=== PATIENT | male | born 1990 | race Two or more races ===

== ENCOUNTER 2025-04-08 10:43 | Inpatient (IN) | payer OTHER ==
[~2025-04-08] VITALS: Ht 170.2 cm; Wt 84.1 kg
--- NOTE | 2025-04-08 11:11 | ED.PDOC ---
GI ASSESSMENT HPI Comments 35 y.o male presents to the ED for a chief complaint of right sided abdominal pain that started last night. Patient describes pain as sharp, constant, and worsens on movement. Patient states waking up around 0100 today with the pain that has progressively worsened. He denies any nausea, vomiting, fever, chills, dysuria. He denies any medical history or allergies. Denies alcohol, tobacco or substance use. Chief Complaint: Abdominal Pain Time Seen by MD: 11:06 Reviewed Notes: Nurses Notes, Medications, Allergies Allergies: Coded Allergies: NO KNOWN ALLERGIES (Unverified , 04/08/25) Information Source: Patient Mode of Arrival: Ambulatory Timing: Hours Duration: Since onset Quality: Sharp Vomitus: None Stool: Normal Severity: Moderate Recent: None Recent Hx of: None Pain Location: RUQ, RLQ Modifying Factors: Nothing Associated sign and symptoms: Abdominal Pain Past Medical History PAST MEDICAL HISTORY: Denies Surgical History: Denies all surgeries Family History Family History: Reviewed,noncontributory to illness Social History Smoker: Non-Smoker Alcohol: Denies ETOH Use Drugs: Denies Drug Use Lives In: Home Constitutional: denies: chills, diaphoresis, fatigue, fever, malaise, sweats, weakness, others EENTM: denies: blurred vision, double vision, ear bleeding, ear discharge, ear drainage, ear pain, ear ringing, eye pain, eye redness, hearing loss, mouth pain, mouth swelling, nasal discharge, nose bleeding, nose congestion, nose pain, photophobia, tearing, throat pain, throat swelling, voice changes, others Cardiovascular: denies: chest pain, dizzy spells, diaphoresis, Dyspnea on exertion, edema, irregular heart beat, left arm pain, lightheadedness, palpitations, PND, syncope, others Gastrointestinal: reports: abdominal pain; denies: abdomen distended, blood streaked bowels, constipated, diarrhea, dysphagia, difficulty swallowing, hematemesis, melena, nausea, poor appetite, poor fluid intake, rectal bleeding, rectal pain, vomiting, others Genitourinary: denies: burning, dysuria, flank pain, frequency, hematuria, incontinence, penile discharge, penile sore, pain, testicle pain, testicle swelling, urgency, others Neurological: reports: headache; denies: dizziness, fainting, left sided numbness, left sided weakness, numbness, paresthesia, pre-existing deficit, right sided numbness, right sided weakness, seizure, speech problems, tingling, tremors, weakness, others Musculoskeletal: denies: back pain, gout, joint pain, joint swelling, muscle pain, muscle stiffness, neck pain, others Integumetry: denies: bruises, change in color, change in hair/nails, dryness, laceration, lesions, lumps, rash, wounds, others Allergic/Immunocompromised: denies: Difficulty Healing, Frequent Infections, Hives, Itching, others Hematologic/Lymphatic: denies: anemia, blood clots, easy bleeding, easy bruising, swollen glands, others Endocrine: denies: excessive hunger, excessive sweating, excessive thirst, excessive urination, flushing, intolerance to cold, intolerance to heat, unexplained weight gain, unexplained weight loss, others Psychiatric: denies: anxiety, bipolar disorder, depression, hopeless, panic disorder, schizophrenia, sleepless, suicidal, others All Other Systems: Reviewed and Negative Physical Exam General Appearance: Moderate Distress HEENT: Normal ENT Inspection, Pharynx Normal, TMs Normal Neck: Full Range of Motion, Non-Tender, Normal, Normal Inspection Respiratory: Chest Non-Tender, Lungs Clear, No Accessory Muscle Use, No Respiratory Distress, Normal Breath Sounds Cardiovascular: No Edema, No JVD, No Murmur, No Gallop, Normal Peripheral Pulses, Regular Rate/Rhythm Breast Exam: Deferred Gastrointestinal: No Organomegaly, No Pulsatile Mass, Normal Bowel Sounds, RLQ, Soft, Tenderness Genitalia: Deferred Pelvic: Deferred Rectal: Deferred Extremities: No calf tenderness, Normal capillary refill, Normal inspection, Normal range of motion, Non-tender, No pedal edema Musculoskeletal : Apperance: Normal Neurologic: Alert, pony worker II-XII nml as Tested, No Motor Deficits, Normal Affect, Normal Mood, No Sensory Deficits Cerebellar Function: Normal Reflexes: Normal Skin: Dry, Normal Color, Warm Lymphatic: No Adenopathy Was a procedure done? Was a procedure done?: No GI differential Dx Differential Diagnosis: Appendicitis, Cholecystitis, Esophagitis, Gastroenteritis, Dehydration X-Ray, Labs, Meds, VS Vital Signs Date Time Temp Pulse Resp B/P (MAP) Pulse Ox O2 Delivery O2 Flow Rate FiO2 04/08/25 12:19 98.9 90 17 177/97 (123) 98 98.9 04/08/25 12:19 Room Air* 0 21 04/08/25 10:46 98.3 89 18 133/94 97 98.3 Lab Test 04/08/25 13:04 04/08/25 12:05 04/08/25 11:33 Range/Units Urine Color Yellow Yellow Urine Clarity Clear Clear Urine pH 6.0 5.0-9.0 Urine Specific [place] 1.021 1.001-1.035 Urine Protein Negative Negative Urine Ketones Negative Negative Urine Blood Trace H Negative /uL Urine Nitrite Negative Negative Urine Bilirubin Negative Negative Urine Urobilinogen Normal Negative mg/dL Urine Leukocyte Esterase Negative Negative /uL Urine RBC 8 0 - 3 /hpf Urine Microscopic WBC 3 0-3 /HPF Urine Squamous Epithelial Cells None seen <5 /hpf Urine Bacteria None seen None Seen /hpf Urine Hyaline Casts Few 0 - 2 /lpf Urine Mucus Few None Seen Urine Glucose Normal Normal mg/dL Prothrombin Time 10.4 9.3-11.8 sec Prothrombin Time INR 0.98 0.9-1.15 Activated Partial Thromboplast Time 35.0 H 24.5-34.5 SEC White Blood Count 11.0 H 4.4-10.8 10^3/uL Red Blood Count 5.58 4.5-5.90 10^6/uL Hemoglobin 16.9 13.5-17.5 g/dL Hematocrit 48.2 41.0-53.0 % Mean Corpuscular Volume 86.4 80.0-100.0 fL Mean Corpuscular Hemoglobin 30.3 28.0-32.0 pg Mean Corpuscular Hemoglobin Concent 35.1 32.0-36.0 g/dL Red Cell Distribution Width 13.2 11.8-14.3 % Platelet Count 275 140-450 10^3/uL Mean Platelet Volume 7.8 6.9-10.8 fL Neutrophils (%) (Auto) 69.8 37.0-80.0 % Lymphocytes (%) (Auto) 21.1 10.0-50.0 % Monocytes (%) (Auto) 7.8 0.0-12.0 % Eosinophils (%) (Auto) 1.0 0.0-7.0 % Basophils (%) (Auto) 0.3 0.0-2.0 % Neutrophils # (Auto) 7.7 1.6-8.6 10 ^3/uL Lymphocytes # (Auto) 2.3 0.4-5.4 10 ^3/uL Monocytes # (Auto) 0.9 0-1.3 10 ^3/uL Eosinophils # (Auto) 0.1 0-0.8 10 ^3/uL Basophils # (Auto) 0 0-0.2 10 ^3/uL Nucleated Red Blood Cells 0.0 % Sodium Level 139 136-145 mmol/L Potassium Level 3.8 3.5-5.1 mmol/L Chloride Level 101 98-107 mmol/L Carbon Dioxide Level 29 20-31 mmol/L Anion Gap 9 5-15 Blood Urea Nitrogen 6 L 9-23 mg/dL Creatinine 0.87 0.700-1.30 mg/dL Glomerular Filtration Rate Calc 114 >90 mL/min BUN/Creatinine Ratio 6.9 L 10.0-20.0 Serum Glucose 97 74-106 mg/dL Calcium Level 10.1 8.7-10.4 mg/dL Current Medications Medications (Trade) Dose Ordered Sig/Brandon Route Start Time Stop Time Status Last Admin Sodium Chloride 1,000 ml @ 1,000 mls/hr Q1H ONCE IV 04/08/25 12:15 04/08/25 13:14 DC 04/08/25 12:32 Piperacillin Sod/ Tazobactam Sod 100 ml @ 100 mls/hr ONCE ONCE IV 04/08/25 12:15 04/08/25 13:14 DC 04/08/25 12:51 CLINICAL HISTORY: rlq pain TECHNIQUE: CT of the abdomen and pelvis was performed without IV contrast. This exam was performed according to our departmental dose optimization program. Up-to-date CT equipment and radiation dose reduction techniques are utilized as appropriate. IMPRESSION: Acute appendicitis. Diffuse hepatic steatosis. IV Hep-Lock was established. The patient was started on Zosyn The patient was given a 1 L bolus of normal saline The CAT scan was reviewed and does reveal appendicitis The patient's CBC shows an elevated white blood cell count of 11.3 The chemistry panel is within normal limits We do have a urine test that was negative The patient is being admitted We spoke with the surgeon and he is aware of the patient and will be evaluating and possibly intervening on this patient Images Reviewed?: Images reviewed and evaluated by me Time of 1ST Reevaluation: 11:08 Reevaluation 1ST: Unchanged Patient Education/Counseling: Diagnosis, Treatment, Prognosis Family Education/Counseling: No Family Present SEPSIS Sepsis Screen Date sepsis recognized/suspect: Apr 08, 2025 Time Sepsis recognized/suspect: 104 Recent Procedure: No On Antibiotic Therapy: No Respiratory Rate >20: No Heart Rate >90: No Temp<36 C (96.8 F) or >38.3 C: No SBP <90 or MAP <65 mmHG: No New Acute Mental Status Change: No Is the patient on CPAP, BIPAP,: No Physician Orders Ct Ab Pel Wo Con-No Oral Or Iv (04/08/25 11:08) Heplock Iv (04/08/25 12:05) [employer] (04/08/25 12:05) Blood Pressure (04/08/25 12:05) Pulse Oximetry (04/08/25 12:05) Vital Signs Date Time Temp Pulse Resp B/P (MAP) Pulse Ox O2 Delivery O2 Flow Rate FiO2 04/08/25 12:19 98.9 90 17 177/97 (123) 98 98.9 04/08/25 12:19 Room Air* 0 21 04/08/25 10:46 98.3 89 18 133/94 97 98.3 Laboratory Tests Test 04/08/25 11:33 White Blood Count 11.0 10^3/uL (4.4-10.8) H Medications Medications Dose Ordered Sig/Brandon Route Start Time Stop Time Status Last Admin Dose Admin Piperacillin Sod/ Tazobactam Sod 100 ml @ 100 mls/hr ONCE ONCE IV 04/08/25 12:15 04/08/25 13:14 DC 04/08/25 12:51 Sodium Chloride 1,000 ml @ 1,000 mls/hr Q1H ONCE IV 04/08/25 12:15 04/08/25 13:14 DC 04/08/25 12:32 Departure 1 Departure Time of Disposition: 13:36 Impression: Primary Impression: Intractable abdominal pain Additional Impression: Acute appendicitis Qualified Codes: K35.30 - Acute appendicitis with localized peritonitis, without perforation or gangrene Disposition: ADMITTED INPATIENT Admit to: Med Surg Condition: Fair Critical Care Note Critical Care Time?: No Stability Stability form required: No I personally scribed for MICHEL MILLER MD ([email or web address]) on 04/08/25 at 11:11. Electronically submitted by Adrianne Millan ([facility]). I personally scribed for MICHEL MILLER MD ([email or web address]) on 04/08/25 at 12:03. Electronically submitted by Adrianne Millan ([facility]). MICHEL MILLER MD Apr 08, 2025 11:11
[2025-04-08 11:50] LABS: Hematocrit 48.2 % (41.0-53.0); Hemoglobin 16.9 g/dL (13.5-17.5); Mean Corpuscular Hemoglobin 30.3 pg (28.0-32.0); Mean Corpuscular Volume 86.4 fL (80.0-100.0); Nucleated Red Blood Cells % 0.0 %
--- NOTE | 2025-04-08 11:51 | DVH ---
CLINICAL HISTORY: rlq pain TECHNIQUE: CT of the abdomen and pelvis was performed without IV contrast. This exam was performed according to our departmental dose optimization program. Up-to-date CT equipment and radiation dose reduction techniques are utilized as appropriate. CTDI 10 DLP 560 COMPARISON: None FINDINGS: Abdomen/Pelvis: The spleen, pancreas, adrenal glands, kidneys, gallbladder, bladder, and prostate gland are grossly unremarkable. There is diffuse hepatic steatosis. The abdominal aorta is normal in course and caliber. There are no significant atherosclerotic calcifications. There is no free intraperitoneal air or fluid. There is no enlarged abdominal pelvic lymph node. The appendix is thick-walled and moderately inflamed with luminal caliber approaching 14 mm. There is Moderate periappendiceal inflammatory change. No discrete fluid collection is seen. There is no evidence for abscess. Other: The imaged lower thorax demonstrate minimal right medial lower lobe atelectasis. No acute osseous abnormality is evident. IMPRESSION: Acute appendicitis. Diffuse hepatic steatosis.
[2025-04-08 12:06] LABS: Chloride 101 mmol/L (98-107); Potassium 3.8 mmol/L (3.5-5.1); Sodium 139 mmol/L (136-145)
[2025-04-08 12:07] LABS: Anion Gap 9 (5-15); Calcium 10.1 mg/dL (8.7-10.4); Carbon Dioxide 29 mmol/L (20-31)
[2025-04-08 12:12] LABS: BUN/Creatinine Ratio 6.9 (10.0-20.0); Blood Urea Nitrogen 6 mg/dL (9-23); Glucose 97 mg/dL (74-106)
[2025-04-08 12:27] LABS: INR 0.98 (0.9-1.15); Partial Thromboplastin Time 35.0 SEC (24.5-34.5); Prothrombin Time 10.4 sec (9.3-11.8)
[2025-04-08] MEDS: SODIUM CHLORIDE 0.9% 1,000 ML IV ONE (12:32)
[2025-04-08] MEDS: PIPERACILLIN-TAZOB 3.375GM 100 ML IV ONE (12:51)
[2025-04-08 13:15] LABS: Urine Protein, UAD Negative (Negative)
--- NOTE | 2025-04-08 13:38 | DVHINCON2 ---
Date of service: Apr 08, 2025 History of Present Illness 45-year-old otherwise healthy male complaining of two day history of right lower quadrant abdominal pain associated with fever. Past Medical History None Past Surgical History None Family History Noncontributory Social History Denies alcohol, tobacco, IV drug use Allergies: Coded Allergies: NO KNOWN ALLERGIES (Unverified , 04/08/25) Vital Signs Vital Signs Date Time Temp Pulse Resp B/P (MAP) Pulse Ox O2 Delivery O2 Flow Rate FiO2 04/08/25 12:19 98.9 90 17 177/97 (123) 98 98.9 04/08/25 12:19 Room Air* 0 21 Physical Exam GEN: Age-appropriate male in no acute distress. Alert. HEENT: Normocephalic atraumatic. Moist mucous membranes. Anicteric sclerae. CV: RRR Respiratory: CTAB ABD: Localized right lower quadrant tenderness to palpation with localized guarding. CT of the abdomen and pelvis: Appendix is thick walled and moderately inflamed with luminal caliber measuring 14 mm with periappendiceal inflammatory changes consistent with the acute appendicitis Labs/Diagnostic Data Labs Test 04/08/25 13:04 04/08/25 12:05 04/08/25 11:33 Range/Units Urine Color Yellow Yellow Urine Clarity Clear Clear Urine pH 6.0 5.0-9.0 Urine Specific [place] 1.021 1.001-1.035 Urine Protein Negative Negative Urine Ketones Negative Negative Urine Blood Trace H Negative /uL Urine Nitrite Negative Negative Urine Bilirubin Negative Negative Urine Urobilinogen Normal Negative mg/dL Urine Leukocyte Esterase Negative Negative /uL Urine RBC 8 0 - 3 /hpf Urine Microscopic WBC 3 0-3 /HPF Urine Squamous Epithelial Cells None seen <5 /hpf Urine Bacteria None seen None Seen /hpf Urine Hyaline Casts Few 0 - 2 /lpf Urine Mucus Few None Seen Urine Glucose Normal Normal mg/dL Prothrombin Time 10.4 9.3-11.8 sec Prothrombin Time INR 0.98 0.9-1.15 Activated Partial Thromboplast Time 35.0 H 24.5-34.5 SEC White Blood Count 11.0 H 4.4-10.8 10^3/uL Red Blood Count 5.58 4.5-5.90 10^6/uL Hemoglobin 16.9 13.5-17.5 g/dL Hematocrit 48.2 41.0-53.0 % Mean Corpuscular Volume 86.4 80.0-100.0 fL Mean Corpuscular Hemoglobin 30.3 28.0-32.0 pg Mean Corpuscular Hemoglobin Concent 35.1 32.0-36.0 g/dL Red Cell Distribution Width 13.2 11.8-14.3 % Platelet Count 275 140-450 10^3/uL Mean Platelet Volume 7.8 6.9-10.8 fL Neutrophils (%) (Auto) 69.8 37.0-80.0 % Lymphocytes (%) (Auto) 21.1 10.0-50.0 % Monocytes (%) (Auto) 7.8 0.0-12.0 % Eosinophils (%) (Auto) 1.0 0.0-7.0 % Basophils (%) (Auto) 0.3 0.0-2.0 % Neutrophils # (Auto) 7.7 1.6-8.6 10 ^3/uL Lymphocytes # (Auto) 2.3 0.4-5.4 10 ^3/uL Monocytes # (Auto) 0.9 0-1.3 10 ^3/uL Eosinophils # (Auto) 0.1 0-0.8 10 ^3/uL Basophils # (Auto) 0 0-0.2 10 ^3/uL Nucleated Red Blood Cells 0.0 % Sodium Level 139 136-145 mmol/L Potassium Level 3.8 3.5-5.1 mmol/L Chloride Level 101 98-107 mmol/L Carbon Dioxide Level 29 20-31 mmol/L Anion Gap 9 5-15 Blood Urea Nitrogen 6 L 9-23 mg/dL Creatinine 0.87 0.700-1.30 mg/dL Glomerular Filtration Rate Calc 114 >90 mL/min BUN/Creatinine Ratio 6.9 L 10.0-20.0 Serum Glucose 97 74-106 mg/dL Calcium Level 10.1 8.7-10.4 mg/dL Assessment 1. Acute appendicitis Plan/Recommendation 1. Laparoscopic appendectomy possible open surgery Informed consent: The surgery and its risks including but not limited to infection, bleeding requiring possible blood transfusion with the risk of hepatitis or HIV infection, possible open surgery, possibility that the abdominal pain is caused by different intra-abdominal pathology other than acute appendicitis in which case we will proceed with the appendectomy if it is safe to do so and then treat the problem according to intraoperative findings were explained to the patient. All questions were answered to his satisfaction. He expressed verbal understanding and wished to proceed with the surgery Plan discussed with: Patient LUIS MTZ MD Apr 08, 2025 13:38
[2025-04-08] MEDS ORDERED: fentaNYL CITRATE 100 MCG/2 ML VL ONE (13:40)
[2025-04-08] MEDS ORDERED: HYDROmorphone HCL 2 MG/ML VL/or syr ONE (13:40)
[2025-04-08] MEDS ORDERED: MIDAZOLAM HCL 2MG/2ML 2ml VIAL (1mg/ml) ONE (13:40)
[2025-04-08] MEDS ORDERED: GLYCOPYRROLATE 0.2 MG/ML 1ML VIAL ONE (13:41)
[2025-04-08] MEDS ORDERED: SUGAMMADEX 200mg/2ml Vial (100MG/ML) IV ONE (13:41)
[2025-04-08] MEDS ORDERED: PROPOFOL 10 MG/ML 20 ML IV ONE (13:41)
[2025-04-08] MEDS ORDERED: LIDOCAINE 2% (LOCAL ANESTH.) PF 5ml SDV ONE (13:41)
[2025-04-08] MEDS ORDERED: ONDANSETRON HCL 4 MG/2 ML VIAL ONE (13:41)
[2025-04-08] MEDS ORDERED: ROCURONIUM 10MG/ML 10ML VIAL IV ONE (13:41)
[2025-04-08] MEDS ORDERED: KETOROLAC TROMETH 30 MG/ML 1ML VIAL ONE (13:41)
[2025-04-08] MEDS: LIDOCAINE W/ EPINEPHRINE 1% 20ML VIAL ONE (14:12)
[2025-04-08] MEDS ORDERED: KETAMINE 50mg/ML 1ml syringe ONE (14:20)
[2025-04-08] MEDS ORDERED: SODIUM CHLORIDE 0.9% 1,000 ML IV SCH ×2 (15:00→15:30)
--- NOTE | 2025-04-08 15:00 | DVHOP2 ---
Operative Report - 2 Report Details Date: 04/08/25 Preop Diagnosis: Acute appendicitis Postop Diagnosis: Same Surgeon: Luis Bruce MD Manager Rn: None Anesthesiologist: Dr. Patiño Anesthesia: General, Local Consent: The surgery and its risks including but not limited to infection, bleeding requiring possible blood transfusion with the risk of hepatitis or HIV infection, possible open surgery, possibility that the abdominal pain is caused by different intra-abdominal pathology other than acute appendicitis in which case we will proceed with the appendectomy if it is safe to do so and then treat the problem according to intraoperative findings were explained to the patient. All questions were answered to his satisfaction. He expressed verbal understanding and wished to proceed with the surgery. Complications: None Estimated Blood Loss: 30 mL Fluids: 1800 mL Name of Procedure Performed Laparoscopic appendectomy Procedure Details Procedure Details: After induction of general anesthesia, a Bundy catheter was placed by the OR nursing staff. Patient's abdomen was then prepped and draped in standard surgical fashion. A small infraumbilical incision was made and this incision was taken through the abdominal wall down to the fascia which was opened sharply. Peritoneum was then bluntly divided gaining access to the intra-abdominal cavity. Interrupted 0 Vicryl sutures were placed through the fascial incision and using an open technique, Barbara trocar was introduced and secured using the Vicryl sutures. Abdomen was insufflated to 15 mmHg and camera was inserted. Visual examination of the intestine under the fascial incision appeared normal without injury. Under direct visualization, a 5 mm bladeless trocar was placed in the left lower quadrant and a 2nd 5 mm bladeless trocar was placed in the suprapubic region both under direct visualization. Examination of the right lower quadrant revealed an inflamed appendix without perforation. Minimal dissection was performed to free up the appendix and using an endovascular stapler the mesoappendix was stapled and divided up to the base of the appendix without complication. The base of the appendix was then stapled and divided using a regular endo stapler. The appendix was then removed from the abdominal cavity using an endo pouch bag and sent off the surgical field. Abdomen was then re-insufflated. The staple line appeared intact without bleeding or leaks. There was small amount of serosanguineous fluid collected in the pelvis which was aspirated away. Pelvic area was then well irrigated until fluid was clear. Trocars were then removed under direct visualization as the abdomen was deflated. Additional interrupted 0 Vicryl sutures were placed through the infraumbilical fascial incision and the sutures were tied down closing off the infraumbilical fascia. Surgical sites were irrigated injected with 20 mL of 1% lidocaine with epinephrine. Skin incisions were closed using 4-0 Monocryl sutures in subcuticular fashion. Surgical sites were cleaned and dried and dressings were applied. Sponge, needle, instrument count at the end of the case were reported to be correct by the nursing staff. The patient tolerated procedure well and at the time of dictation, he is being awakened from general anesthesia. Specimen: Appendix Condition Stable Disposition Still a Patient LUIS BRUCE MD Apr 08, 2025 15:00
[2025-04-08 15:09] VITALS: O2SAT 97
[2025-04-08] MEDS ORDERED: ACETAMINOPHEN IV 1000 MG/100ML (10MG/ML) IV ONE (15:15)
[2025-04-08] MEDS ORDERED: ONDANSETRON HCL 4 MG/2 ML VIAL IV PRN (15:15)
[2025-04-08] MEDS ORDERED: HYDROmorphone HCL 2 MG/ML VL/or syr IV PRN (15:15)
[2025-04-08] MEDS ORDERED: ACETAMINOPHEN 325 MG TAB PO PRN (15:30)
[2025-04-08] MEDS ORDERED: NITROGLYCERIN 0.4 MG SL TAB SL PRN ×2 (15:30)
[2025-04-08] MEDS ORDERED: MORPHINE SULFATE INJ 2 MG/ml SYRG IV PRN ×2 (15:30)
[2025-04-08] MEDS ORDERED: MORPHINE SULFATE 4 MG/ML SYR/VIAL IV PRN ×2 (15:30)
--- NOTE | 2025-04-08 15:30 | DVHHPRES ---
History of Present Illness Resident Creating Document: JOHANNE PADILLA RESIDENT History of Present Illness Erik Andino, A 35-year-old male with no significant past medical or surgical history presents ambulatory to the ED with moderate, sharp, constant right-sided abdominal pain (RUQ and RLQ) that began last night and worsens with movement, associated nausea, but denies vomiting, fever, chills, dysuria, and substance use. Presented with Acute appendicitis noted in CT abdomen pelvis, status post laparoscopic appendicectomy by doctors SMITH on p.m. of 04/08. PMHx: None PSHx: none Family history: noncontributory Social history: denies history of smoking, alcohol, recreational drugs, lives at home with family, accompanied to the hospital by . Review of Systems Constitutional: Yes: Chills, Malaise; No: Fever, Sweats, Weakness, Other Eyes: No: Pain, Vision change, Conjunctivae inflammation, Eyelid inflammation, Other, Redness ENT: No: Ear pain, Ear discharge, Nose pain, Nose discharge, Nose congestion, Mouth pain, Mouth swelling, Throat pain, Throat swelling, Other Respiratory: No: Cough, Dry, Shortness of breath, SOB with excertion, Wheezing, Hemoptysis, Pleuritic Pain, Sputum, Wheezing, Other Cardiovascular: No: Chest Pain, Palpitations, Orthopnea, Paroxysmal Noc. Dyspnea, Edema, Lt Headedness, Other Gastrointestinal: Nausea, Abdominal Pain; No: Vomiting, Diarrhea, Constipation, Melena, Hematochezia, Other Genitourinary: No Dysuria, No Frequency, No Incontinence, No Hematuria, No Retention, No Other Musculoskeletal: No: other, neck pain, shoulder pain, arm pain, back pain, hand pain, leg pain, foot pain Skin: No: Rash, Lesions, Jaundice, Bruising, Other Neurological: No: Weakness, Numbness, Incoordination, Change in speech, Confusion, Seizures, Other Allergies: Coded Allergies: NO KNOWN ALLERGIES (Unverified , 04/08/25) Medications Current Medications Medications Dose Ordered Sig/Brandon Route Start Time Stop Time Status Last Admin Dose Admin Piperacillin Sod/ Tazobactam Sod 100 ml @ 25 mls/hr Q6HR IV 04/08/25 18:00 Morphine Sulfate 2 mg Q4HPRN IV 04/08/25 18:00 Ondansetron HCl 4 mg Q6HPRN IV 04/08/25 18:00 Ondansetron HCl 4 mg ONCE PRN IV 04/08/25 15:15 04/08/25 15:16 UNV Hydromorphone HCl 0.5 mg Q10M PRN IV 04/08/25 15:15 04/08/25 15:56 UNV Nitroglycerin 0.4 mg Q5MINP PRN SL 04/08/25 15:30 UNV Morphine Sulfate 2 mg Q30M PRN IV 04/08/25 15:30 UNV Sodium Chloride 1,000 ml @ 120 mls/hr Q8H20M IV 04/08/25 15:30 Acetaminophen/ Hydrocodone Bitart 1 tab Q4HP PRN PO 04/08/25 15:30 UNV Ondansetron HCl 4 mg Q4HP PRN IV 04/08/25 15:30 UNV Acetaminophen 650 mg Q6HP PRN PO 04/08/25 15:30 UNV Morphine Sulfate 2 mg Q4HPRN PRN IV 04/08/25 15:30 UNV Enoxaparin Sodium 40 mg DAILY SC 04/09/25 10:00 UNV Nitroglycerin 0.4 mg Q5MINP PRN SL 04/08/25 15:30 UNV Morphine Sulfate 2 mg Q30M PRN IV 04/08/25 15:30 UNV Exam Vital Signs Vital Signs Date Time Temp Pulse Resp B/P (MAP) Pulse Ox O2 Delivery O2 Flow Rate FiO2 04/08/25 12:19 98.9 90 17 177/97 (123) 98 98.9 04/08/25 12:19 Room Air* 0 21 General Appearance: Alert, Oriented X3, Cooperative HEENT: Atraumatic, PERRLA, EOMI, Other (dry mucosa) Respiratory: Clear to auscultation, Normal air movement Cardiovascular: Regular rate, Normal S1, Normal S2, No murmurs Abdominal: Soft, Other (on abdominal binder. healthy surgical wounds. slow GI transit. ) Extremities: No clubbing, No cyanosis, No edema, Normal pulses Skin: No rashes, No breakdown, No significant lesion Neuro: Normal speech, Strength at 5/5 X4 ext, Normal tone, Sensation intact Psych/Mental Status: Mental status NL, Mood NL Labs/Xrays Labs Test 04/08/25 13:04 04/08/25 12:05 04/08/25 11:33 Range/Units Urine Color Yellow Yellow Urine Clarity Clear Clear Urine pH 6.0 5.0-9.0 Urine Specific [place] 1.021 1.001-1.035 Urine Protein Negative Negative Urine Ketones Negative Negative Urine Blood Trace H Negative /uL Urine Nitrite Negative Negative Urine Bilirubin Negative Negative Urine Urobilinogen Normal Negative mg/dL Urine Leukocyte Esterase Negative Negative /uL Urine RBC 8 0 - 3 /hpf Urine Microscopic WBC 3 0-3 /HPF Urine Squamous Epithelial Cells None seen <5 /hpf Urine Bacteria None seen None Seen /hpf Urine Hyaline Casts Few 0 - 2 /lpf Urine Mucus Few None Seen Urine Glucose Normal Normal mg/dL Prothrombin Time 10.4 9.3-11.8 sec Prothrombin Time INR 0.98 0.9-1.15 Activated Partial Thromboplast Time 35.0 H 24.5-34.5 SEC White Blood Count 11.0 H 4.4-10.8 10^3/uL Red Blood Count 5.58 4.5-5.90 10^6/uL Hemoglobin 16.9 13.5-17.5 g/dL Hematocrit 48.2 41.0-53.0 % Mean Corpuscular Volume 86.4 80.0-100.0 fL Mean Corpuscular Hemoglobin 30.3 28.0-32.0 pg Mean Corpuscular Hemoglobin Concent 35.1 32.0-36.0 g/dL Red Cell Distribution Width 13.2 11.8-14.3 % Platelet Count 275 140-450 10^3/uL Mean Platelet Volume 7.8 6.9-10.8 fL Neutrophils (%) (Auto) 69.8 37.0-80.0 % Lymphocytes (%) (Auto) 21.1 10.0-50.0 % Monocytes (%) (Auto) 7.8 0.0-12.0 % Eosinophils (%) (Auto) 1.0 0.0-7.0 % Basophils (%) (Auto) 0.3 0.0-2.0 % Neutrophils # (Auto) 7.7 1.6-8.6 10 ^3/uL Lymphocytes # (Auto) 2.3 0.4-5.4 10 ^3/uL Monocytes # (Auto) 0.9 0-1.3 10 ^3/uL Eosinophils # (Auto) 0.1 0-0.8 10 ^3/uL Basophils # (Auto) 0 0-0.2 10 ^3/uL Nucleated Red Blood Cells 0.0 % Sodium Level 139 136-145 mmol/L Potassium Level 3.8 3.5-5.1 mmol/L Chloride Level 101 98-107 mmol/L Carbon Dioxide Level 29 20-31 mmol/L Anion Gap 9 5-15 Blood Urea Nitrogen 6 L 9-23 mg/dL Creatinine 0.87 0.700-1.30 mg/dL Glomerular Filtration Rate Calc 114 >90 mL/min BUN/Creatinine Ratio 6.9 L 10.0-20.0 Serum Glucose 97 74-106 mg/dL Calcium Level 10.1 8.7-10.4 mg/dL SEPSIS Sepsis Screen Date sepsis recognized/suspect: Apr 08, 2025 Time Sepsis recognized/suspect: 8 Recent Procedure: No On Antibiotic Therapy: No Respiratory Rate >20: No Heart Rate >90: Yes Temp<36 C (96.8 F) or >38.3 C: No SBP <90 or MAP <65 mmHG: No New Acute Mental Status Change: No Is the patient on CPAP, BIPAP,: No Physician Orders Ct Ab Pel Wo Con-No Oral Or Iv (04/08/25 11:08) [place] Iv (04/08/25 12:05) Licensed Psychologist Manager (04/08/25 12:05) Blood Pressure (04/08/25 12:05) Pulse Oximetry (04/08/25 12:05) Piperacillin-Tazob 3.375gm (Zosyn 3.375g (04/08/25 18:00) Incentive Spirometry Q 1hr (04/08/25 14:52) Sequential Compression Device (04/08/25 14:52) Ondansetron Hcl (Zofran) (04/08/25 18:00) Complete Blood Count (04/09/25 04:00) Basic Metabolic Panel (04/09/25 04:00) Morphine Sulfate Injection (04/08/25 18:00) Oxygen By Face Mask (04/08/25 15:14) Licensed Psychologist Manager (04/08/25 15:14) Notify Anesth. For Changes: (04/08/25 15:14) Pulse Ox Assessment (04/08/25 15:14) May Have Head Of Bed Up (04/08/25 15:14) Continue Present Iv (04/08/25 15:14) Discharge To Room Per Criteria (04/08/25 15:14) Ondansetron Hcl (Zofran) (04/08/25 15:15) Hydromorphone Injection (Dilaudid Inject (04/08/25 15:15) Acetaminophen Iv (Ofirmev) (04/08/25 15:15) Bipap/Cpap For Sleep Apnea (04/08/25 15:14) Admit (04/08/25 15:17) Oxygen By Nasal Cannula (04/08/25 15:17) Nitroglycerin Sublingual (Ntrostat Subli (04/08/25 15:30) Morphine Sulfate Injection (04/08/25 15:30) Stat Ekg For Chest Pain (04/08/25 15:17) Notify Md Of Changes From Base (04/08/25 15:17) Motel Front Desk Attendant For 24 Hours (04/08/25 15:17) Emergency Dysrhythmia Protocol (04/08/25 15:17) Rhythm Strips Once Every Shift (04/08/25 15:17) Admit (04/08/25 15:17) Allergies (04/08/25 15:17) Code Status (04/08/25 15:17) Sodium Chloride 0.9% (04/08/25 15:30) Hydrocodone-Acet 5/325mg Tab ([place] 5/32 (04/08/25 15:30) Ondansetron Hcl (Zofran) (04/08/25 15:30) Complete Blood Count (04/09/25 04:00) Comprehensive Metabolic Panel (04/09/25 04:00) Npo (Nothing By Mouth) Diet (04/08/25 Dinner) Condition: Critical (04/08/25 15:17) Acetaminophen Tablet (Tylenol Tablet) (04/08/25 15:30) Bedrest With Bathroom Privileg (04/08/25 15:17) Bedside Commode (04/08/25 15:17) Morphine Sulfate Injection (04/08/25 15:30) Enoxaparin Sodium (Lovenox) (04/09/25 10:00) Nitroglycerin Sublingual (Ntrostat Subli (04/08/25 15:30) Morphine Sulfate Injection (04/08/25 15:30) Oxygen By Nasal Cannula (04/08/25 15:17) Stat Ekg For Chest Pain (04/08/25 15:17) Notify Of Changes From Base (04/08/25 15:17) Motel Front Desk Attendant For 24 Hours (04/08/25 15:17) Vital Signs Date Time Temp Pulse Resp B/P (MAP) Pulse Ox O2 Delivery O2 Flow Rate FiO2 04/08/25 12:19 98.9 90 17 177/97 (123) 98 98.9 04/08/25 12:19 Room Air* 0 21 04/08/25 10:46 98.3 89 18 133/94 97 98.3 Laboratory Tests Test 04/08/25 11:33 White Blood Count 11.0 10^3/uL (4.4-10.8) H Medications Medications Dose Ordered Sig/Brandon Route Start Time Stop Time Status Last Admin Dose Admin Lidocaine/ Epinephrine 20 ml STK-MED ONCE .ROUTE 04/08/25 13:39 04/08/25 13:39 DC 04/08/25 14:12 20 ML Piperacillin Sod/ Tazobactam Sod 100 ml @ 100 mls/hr ONCE ONCE IV 04/08/25 12:15 04/08/25 13:14 DC 04/08/25 12:51 100 MLS/HR Sodium Chloride 1,000 ml @ 1,000 mls/hr Q1H ONCE IV 04/08/25 12:15 04/08/25 13:14 DC 04/08/25 12:32 1,000 MLS/HR Assessment/Plan Assessment/Plan #Acute abdomen with nausea: UTI ruled out, likely appendicitis, other possible common causes of acute abdomen to rule out. Keep the patient NPO, IV hydration to continue #Acute appendicitis status post laparoscopic appendicectomy: NPO, follow up wi th the surgery, IV hydration to continue, pain control, abdominal binder, incentive spirometry. Blood culture to rule out bacteremia. CBC and CMP to follow up. #Post surgical bilateral atelectasis: Q 1 incentive spirometry continue, multimodal pain control. PUD prophylaxis: protonix 40mg/IV daily DVT prophylaxis: Levonox 40mg/brisk movement. Barriers to discharge: Medical diagnosis and management in progress. Patient l jonn with family. Independent for ADL. PCP: not established PCP. compliance coordinator consultation done. Patient needs to follow up with discharge Clinic in the meantime. Specialist Relevant To Admission: General surgery, Dr. Bruce consulted. Case discussed with Dr. Dunn. Code Status: Full Code. Discussion for goals of care and care plan needed total 29 minutes bedside Plan discussed with: Patient My Orders Orders - JOHANNE PADILLA RESIDENT Procedure Category Date Status Time Admit ADMIT 04/08/25 Transmitted 15:17 Oxygen By Nasal RT 04/08/25 Transmitted Cannula 15:17 Nitroglycerin [facility] 04/08/25 Logged Sublingual (Ntrostat 15:30 Morphine Sulfate [facility] 04/08/25 Logged Injection 15:30 Stat Ekg For Chest [facility] 04/08/25 In Process Pain 15:17 Notify Md Of Changes [facility] 04/08/25 In Process From Base 15:17 Motel Front Desk Attendant For [facility] 04/08/25 In Process 24 Hours 15:17 Emergency Dysrhythmia [facility] 04/08/25 In Process Protocol 15:17 Rhythm Strips Once [facility] 04/08/25 In Process Every Shift 15:17 Admit ADMIT 04/08/25 Transmitted 15:17 Allergies [facility] 04/08/25 In Process 15:17 Code Status CODE 04/08/25 Transmitted 15:17 Sodium Chloride 0.9% [facility] 04/08/25 In Process 15:30 Hydrocodone-Acet [facility] 04/08/25 Logged 5/325mg Tab ([place] 15:30 Ondansetron Hcl [facility] 04/08/25 Logged (Zofran) 15:30 Complete Blood Count LAB 04/09/25 Verified 04:00 Comprehensive LAB 04/09/25 Verified Metabolic Panel 04:00 Npo (Nothing By DIET 04/08/25 Transmitted Mouth) Diet Dinner Condition: Critical [facility] 04/08/25 In Process 15:17 Acetaminophen Tablet [facility] 04/08/25 Logged (Tylenol Tablet) 15:30 Bedrest With Bathroom [facility] 04/08/25 In Process Privileg 15:17 Bedside Commode [facility] 04/08/25 In Process 15:17 Morphine Sulfate [facility] 04/08/25 Logged Injection 15:30 Enoxaparin Sodium [facility] 04/09/25 Logged (Lovenox) 10:00 Nitroglycerin [facility] 04/08/25 Logged Sublingual (Ntrostat 15:30 Morphine Sulfate [facility] 04/08/25 Logged Injection 15:30 Oxygen By Nasal RT 04/08/25 Transmitted Cannula 15:17 Stat Ekg For Chest [facility]RSZUL[facility] 04/08/25 In Process Pain 15:17 Notify Of Changes [facility] 04/08/25 In Process From Base 15:17 Motel Front Desk Attendant For [facility] 04/08/25 In Process 24 Hours 15:17 Date of Service: Apr 08, 2025 Billing Provider: HAVEN DUNN MD Common Visit Codes: 05430-LAIAGSX INP/OBS CARE (HIGH) Secondary Visit Codes: 29904-[id number] CARE PLAN 30 MINUTES JOHANNE PADILLA RESIDENT Apr 08, 2025 15:30
[2025-04-08 16:54] VITALS: BP 126/87; PULSE 88; RESP 15; TEMP 98.4; O2SAT 95
[2025-04-08] MEDS: SODIUM CHLORIDE 0.9% 1,000 ML IV SCH (17:50)
[2025-04-08] MEDS: PIPERACILLIN-TAZOB 3.375GM 100 ML IV SCH (17:51)
[2025-04-08] MEDS ORDERED: ONDANSETRON HCL 4 MG/2 ML VIAL IV SCH (18:00)
[2025-04-08] MEDS ORDERED: MORPHINE SULFATE 4 MG/ML SYR/VIAL IV SCH (18:00)
[2025-04-08 18:02] VITALS: PULSE 88; RESP 15; O2SAT 95
[2025-04-08 18:18] LABS: Alkaline Phosphatase 95.0 U/L (46-116); Bilirubin, Direct 0.1 mg/dL (<0.3); Bilirubin, Total 0.5 mg/dL (0.2-1.0)
[2025-04-08 18:22] LABS: Alanine Aminotransferase 49.0 U/L (7-40); Albumin 5.1 g/dL (3.2-4.8); Total Protein 8.6 g/dL (5.7-8.2)
[2025-04-08 18:32] LABS: Lipase 44.0 U/L (12-53)
[2025-04-08 20:17] VITALS: PULSE 86; RESP 95; O2SAT 95
[2025-04-08 21:00] VITALS: PULSE 91; RESP 18; TEMP 96.6; O2SAT 96
[2025-04-08] MEDS: ONDANSETRON HCL 4 MG/2 ML VIAL IV PRN (21:20)
[2025-04-08 22:15] VITALS: O2SAT 96
[2025-04-09] VITALS (8 sets, daily range): BP systolic 102–113; BP diastolic 61–76; PULSE 74–96; RESP 16–21; TEMP 97.9–100.4; O2SAT 90–98
[2025-04-09 06:37] LABS: Hematocrit 43.2 % (41.0-53.0); Hemoglobin 15.0 g/dL (13.5-17.5); Mean Corpuscular Hemoglobin 30.0 pg (28.0-32.0); Mean Corpuscular Volume 86.5 fL (80.0-100.0); Nucleated Red Blood Cells % 0.0 %
[2025-04-09 07:03] LABS: Alanine Aminotransferase 37 U/L (7-40); Albumin 4.3 g/dL (3.2-4.8); Alkaline Phosphatase 80 U/L (46-116); Anion Gap 13 (5-15); BUN/Creatinine Ratio 10.0 (10.0-20.0); Bilirubin, Total 0.6 mg/dL (0.2-1.0); Calcium 9.2 mg/dL (8.7-10.4); Carbon Dioxide 27 mmol/L (20-31); Chloride 101 mmol/L (98-107); Potassium 3.7 mmol/L (3.5-5.1); Sodium 141 mmol/L (136-145); Total Protein 7.5 g/dL (5.7-8.2)
[2025-04-09 07:04] LABS: Blood Urea Nitrogen 8 mg/dL (9-23); Glucose 136 mg/dL (74-106)
--- NOTE | 2025-04-09 09:16 | DVHPN2 ---
Progress Note - Dictate Date Seen: Apr 09, 2025 Medical Necessity Reason Pt with a Central, PICC or Fol: No Subjective E: no major events o/n. pain is much improved. eliezer liquid diet. vital signs Vital Sign Date Time Temp Pulse Resp B/P (MAP) Pulse Ox O2 Delivery O2 Flow Rate FiO2 04/09/25 08:00 87 18 Nasal Cannula* 3 32 04/09/25 05:00 98.5 90 98.5 04/09/25 01:00 104/74 (84) Total Intake and Output 04/08/25 04/08/25 04/09/25 15:00 23:00 07:00 Intake Total 100 ml 0 ml 810 ml Output Total 300 ml 650 ml Balance -200 ml 0 ml 160 ml medications Current Medications Medications Dose Ordered Sig/Brandon Route Start Time Stop Time Status Last Admin Dose Admin Piperacillin Sod/ Tazobactam Sod 100 ml @ 25 mls/hr Q6HR IV 04/08/25 18:00 04/09/25 06:02 25 MLS/HR Acetaminophen/ Hydrocodone Bitart 1 tab Q4HP PRN PO 04/08/25 15:30 Ondansetron HCl 4 mg Q4HP PRN IV 04/08/25 15:30 04/08/25 21:20 4 MG Acetaminophen 650 mg Q6HP PRN PO 04/08/25 15:30 Enoxaparin Sodium 40 mg DAILY SC 04/09/25 10:00 Nitroglycerin 0.4 mg Q5MINP PRN SL 04/08/25 15:30 Morphine Sulfate 2 mg Q30M PRN IV 04/08/25 15:30 Morphine Sulfate 2 mg Q4HPRN PRN IV 04/08/25 15:30 Sodium Chloride 1,000 ml @ 75 mls/hr [id number] IV 04/08/25 17:00 04/09/25 06:03 75 MLS/HR objective GEN: NAD ABD: surgical dressings clean and dry laboratory and microbiology Laboratory Tests 04/09/25 04:54 Test 04/09/25 04:54 Range/Units Serum Glucose 136 H 74-106 mg/dL Assessment/Plan A: 1. s/p lap appendectomy POD #1 improving. P: 1. stable from surgery POV for DC with oral abx (augmentin 500 BID x 3-5 days) 2. remove top bandages tomorrow. Leave steristrips on. Ok to et incisions wet tomorrow. 3. call [phone] for f/u appt Plan discussed with: Patient, Other (sister) LUIS MTZ MD Apr 09, 2025 09:16
[2025-04-09] MEDS: ENOXAPARIN SOD 40 MG/0.4 ML SYRINGE SC SCH (09:46)
[2025-04-09] MEDS ORDERED: AUG875T PO (14:43)
--- NOTE | 2025-04-09 15:44 | DVHDS2 ---
Discharge Summary Date of Admission Apr 08, 2025 at 15:17 Date of Discharge: Apr 09, 2025 Labs/Diagnostic Data: Laboratory Results Test 04/09/25 04:54 04/08/25 13:04 04/08/25 12:05 04/08/25 11:33 White Blood Count 13.0 10^3/uL (4.4-10.8) Red Blood Count 5.00 10^6/uL (4.5-5.90) Hemoglobin 15.0 g/dL (13.5-17.5) Hematocrit 43.2 % (41.0-53.0) Mean Corpuscular Volume 86.5 fL (80.0-100.0) Mean Corpuscular Hemoglobin 30.0 pg (28.0-32.0) Mean Corpuscular Hemoglobin Concent 34.7 g/dL (32.0-36.0) Red Cell Distribution Width 13.3 % (11.8-14.3) Platelet Count 255 10^3/uL (140-450) Mean Platelet Volume 7.9 fL (6.9-10.8) Neutrophils (%) (Auto) 89.2 % (37.0-80.0) Lymphocytes (%) (Auto) 6.9 % (10.0-50.0) Monocytes (%) (Auto) 3.9 % (0.0-12.0) Eosinophils (%) (Auto) 0.0 % (0.0-7.0) Basophils (%) (Auto) 0.0 % (0.0-2.0) Neutrophils # (Auto) 11.6 10 ^3/uL (1.6-8.6) Lymphocytes # (Auto) 0.9 10 ^3/uL (0.4-5.4) Monocytes # (Auto) 0.5 10 ^3/uL (0-1.3) Eosinophils # (Auto) 0 10 ^3/uL (0-0.8) Basophils # (Auto) 0 10 ^3/uL (0-0.2) Nucleated Red Blood Cells 0.0 % Sodium Level 141 mmol/L (136-145) Potassium Level 3.7 mmol/L (3.5-5.1) Chloride Level 101 mmol/L (98-107) Carbon Dioxide Level 27 mmol/L (20-31) Anion Gap 13 (5-15) Blood Urea Nitrogen 8 mg/dL (9-23) Creatinine 0.80 mg/dL (0.700-1.30) Glomerular Filtration Rate Calc 117 mL/min (>90) BUN/Creatinine Ratio 10.0 (10.0-20.0) Serum Glucose 136 mg/dL (74-106) Calcium Level 9.2 mg/dL (8.7-10.4) Total Bilirubin 0.6 mg/dL (0.2-1.0) Aspartate Amino Transferase (AST) 16 U/L (13-40) Alanine Aminotransferase (ALT) 37 U/L (7-40) Alkaline Phosphatase 80 U/L (46-116) Total Protein 7.5 g/dL (5.7-8.2) Albumin 4.3 g/dL (3.2-4.8) Urine Color Yellow (Yellow) Urine Clarity Clear (Clear) Urine pH 6.0 (5.0-9.0) Urine Specific [place] 1.021 (1.001-1.035) Urine Protein Negative (Negative) Urine Ketones Negative (Negative) Urine Blood Trace /uL (Negative) Urine Nitrite Negative (Negative) Urine Bilirubin Negative (Negative) Urine Urobilinogen Normal mg/dL (Negative) Urine Leukocyte Esterase Negative /uL (Negative) Urine RBC 8 /hpf (0 - 3) Urine Microscopic WBC 3 /HPF (0-3) Urine Squamous Epithelial Cells None seen /hpf (<5) Urine Bacteria None seen /hpf (None Seen) Urine Hyaline Casts Few /lpf (0 - 2) Urine Mucus Few (None Seen) Urine Glucose Normal mg/dL (Normal) Prothrombin Time 10.4 sec (9.3-11.8) Prothrombin Time INR 0.98 (0.9-1.15) Activated Partial Thromboplast Time 35.0 SEC (24.5-34.5) Direct Bilirubin 0.1 mg/dL (<0.3) Lipase 44 U/L (12-53) Other Laboratory Tests 04/09/25 04:54 Brief Hx & Hospital Course: Patient is a 35-year-old male with no prior medical history who presented with right lower quadrant pain that he described as sharp, constant. He notes that it began the night prior to admission and associated with nausea but denied any vomiting. CT abdomen pelvis noted acute appendicitis. Patient was admitted and seen by general surgery. Patient underwent appendectomy on 04/08. Patient tolerated the procedure without any, location. Patient was cleared by surgery for discharge after advancing his diet. He is to be on Augmentin for 5 additional days. Patient is to avoid heavy lifting which he was counseled on. Patient did not require any significant pain medications and therefore was advised to just take [id number] Advil or Tylenol as needed. Patient was discharged in stable condition. Follow-up outpatient to be arranged. Condition at Discharge: Good Final Diagnosis/Problems List Appendicitis Discharge Disposition: Home Discharge Instruct/Medications Diet: Regular Diet comment: Increase diet slowly as tolerated. Activity: Light activity Activity comment: No weight lifting until cleared by surgery. Follow Up/Referral: Follow up with Dr. Bruce in 1 week. Medications: Augmentin x5 days. Scheduled Amoxicillin & Pot Clavulanate (Augmentin Tablet), 875 MG PO BID Discharge Statement: "Patient was advised to return to the ER or call 911 if any headaches, dizziness, shortness of breath, chest pain, abdominal pain, bleeding, fevers, or worsening of medical condition. Patient was counseled about treatment plan, medications, possible side effects, patientverbalized understanding. All questions were answered to the best of my ability. This discharge took greater then 30 minutes in planning, reviewing documentation, counseling the patient, and discussing with other team members." ASSESSMENT ASSESSMENT Assessment Appendicitis MARIO PORTER DO Apr 09, 2025 15:44
[2025-04-09] MEDS: HYDROcodone-ACET 5/325MG TAB PO PRN (15:48)
== END 2025-04-09 17:48 | disposition home or self-care (01) | DRG 398 ==
LOC: ER 10:43 → OVERFLOW 15:17 → WEST WING 15:19
PROVIDERS: ADMIT Student in an Organized Health Care Education/Training Program; ATTEND Student in an Organized Health Care Education/Training Program
PROC: 0DTJ4ZZ Resection of Appendix, Percutaneous Endoscopic Approach (ICD-10-PCS; principal; 2025-04-08 13:55)
DX: K35.30 Acute appendicitis with localized peritonitis, without perforation or gangrene (principal); J98.11 Atelectasis; K76.0 Fatty (change of) liver, not elsewhere classified
CPT/HCPCS: 36415; 74176; 80048; 80053; 80076; 81001; 83690; 85025; 85610; 85730; 87040; 96361; 96365; G0378; J1100; J1885; J2003; J2250; J2405; J2543; J2704